=== PATIENT | female | born 1990 | race African-American/Black ===

== ENCOUNTER 2016-09-27 17:31 | Emergency (ER) | payer OTHER ==
[~2016-09-27] VITALS: Ht 154.9 cm; Wt 68.0 kg
[~2016-09-27 17:31] MED LIST: CITRATE OF MAG296 ML PO; COLACE100 MG PO; IBUPROFEN 600600 M1 PO; MACROBID 100 M100 M1 PO; NAPROSYN500 MG PO; PEPCID20 MG PO; PROAIR HFA8.5 GM; ULTRAM 50MG TAB50 MG PO; VENTOLIN HFA 1818 GM INH; ZPAK PO
[2016-09-27] MEDS ORDERED: MACROBID 100 M100 M1 PO (17:41)
[2016-09-27 17:58] VITALS: BP 120/76
[2016-09-27] MEDS ORDERED: CLONAZEPAM 0.50.5 M1 PO (17:59)
[2016-09-27 18:13] LABS: URINE BILIRUBIN NEGATIVE (Negative); URINE BLOOD 2+ (Negative); URINE COLOR YELLOW; URINE GLUCOSE-RANDOM* NEGATIVE (Negative); URINE KETONES NEGATIVE (Negative); URINE NITRITE NEGATIVE (Negative); URINE PROTEIN (DIPSTICK) TRACE (Negative); URINE SPECIFIC GRAVITY >= 1.030 (1.003-1.035); URINE UROBILINOGEN 0.2 E.U./dl (0.2-1.0)
[2016-09-27 18:21] LABS: SQUAMOUS 0-3 Few /LPF (0-3)
[2016-09-27 18:22] LABS: BACTERIA 1-9 Few /HPF (None Seen); CASTS None Seen /LPF (None Seen); CRYSTALS None Seen /LPF (None Seen); URINE RBC 3-10 Few /HPF (0-2); URINE WBC 0-5 Rare /HPF (0-5)
== END 2016-09-27 18:28 | disposition home or self-care (01) ==
LOC: ER 17:31
PROVIDERS: Emergency Medicine
DX: N76.0 Acute vaginitis (principal); J45.909 Unspecified asthma, uncomplicated; Z88.6 Allergy status to analgesic agent

== ENCOUNTER 2016-12-02 15:20 | Emergency (ER) | payer BC, OTHER ==
[~2016-12-02] VITALS: Ht 154.9 cm; Wt 68.0 kg
--- NOTE | ~2016-12-02 | EKG ---
[address] [address] ELECTROCARDIOGRAM REPORT Name: MOHSEN PABON Room #: [facility]#: [id number] Admission: 12/02/16 Attend Phys: Discharge: 12/02/16 Date of : [birth year] Report #: [id number] THIS REPORT FOR: //name// [facility] ED Test Date: 2016-12-02 Test Time: 15:57:36 Pat Name: MOHSEN PABON Department: Room: Gender: F Receiving Weigher: [id number] : 1990 Requested By: Brannon Valenzuela Order Number: [id number] MD: Andres Hogue Measurements Intervals [place] Rate: 116 P: 55 [place]: 164 QRS: 45 QRSD: 106 T: 4 QT: 309 QTc: 430 Interpretive Statements Sinus tachycardia Otherwise no significant abnormality Compared to ECG 10/04/2014 19:46:49 Sinus rhythm no longer present Electronically Signed On 12-03-2016 8:58:38 CDT by Andres Hogue [email or web address] <ELECTRONICALLY SIGNED> By: Andres Hogue MD, [facility] 12/03/16 0858 1557 155 Andres Hogue MD, FAC /EPI
--- NOTE | ~2016-12-02 | EKG ---
[address] [address] ELECTROCARDIOGRAM REPORT Name: MOHSEN PABON Room #: DEP [facility]#: [id number] Admission: 12/02/16 Attend Phys: Discharge: 12/02/16 Date of : [birth year] Report #: [id number] THIS REPORT FOR: //name// [facility] ED Test Date: 2016-12-02 Test Time: 15:34:18 Pat Name: MOHSEN PABON Department: Room: Gender: F Town Administrator: [email or web address] : 1990 Requested By: Branonn Valenzuela Order Number: [id number] MD: Andres Hogue Measurements Intervals [place] Rate: 82 P: 9 [place]: 160 QRS: 44 QRSD: 93 T: 14 QT: 355 QTc: 415 Interpretive Statements Sinus rhythm No significant abnormality Compared to ECG 10/04/2014 19:46:49 No significant changes Electronically Signed On 12-03-2016 8:58:25 CDT by Andres Hogue [email or web address] <ELECTRONICALLY SIGNED> By: Andres Hogue MD, [facility] 12/03/16 0858 D: 07/1533 153 Andres Hogue MD, FACC /EPI
[~2016-12-02 15:20] MED LIST changes: +CLONAZEPAM 0.50.5 M1 PO
[2016-12-02] MEDS ORDERED: ALBUTEROL2.5 MG/0.1 INH (15:21)
[2016-12-02 15:54] LABS: ABSOLUTE NEUTROPHILS 3.2 thou/uL (1.4-8.2); BASOPHILS 0.4 % (0.0-2.0); EOSINOPHILS 0.5 % (0.0-3.0); HEMATOCRIT 34.3 % (37.0-47.0); HEMOGLOBIN 11.4 gm/dL (12.0-15.0); LYMPHOCYTES 26.6 % (24.0-44.0); MCH 33.4 pg (26.0-34.0); MCHC 33.2 g/dL (28.0-37.0); MCV 100.5 fL (80.0-100.0); MONOCYTES 4.4 % (1.0-8.0); PLATELET COUNT 185 thou/uL (150-400); POLYS 68.1 % (36.0-66.0); RBC 3.42 mil/uL (4.20-5.00); RDW 13.8 % (10.5-14.5); WBC 4.7 thou/uL (4.0-11.0)
[2016-12-02 15:55] LABS: MANUAL DIFF NO
[2016-12-02 16:02] LABS: URINE BILIRUBIN 1+ (Negative); URINE BLOOD NEGATIVE (Negative); URINE COLOR YELLOW; URINE GLUCOSE-RANDOM* NEGATIVE (Negative); URINE KETONES 1+ (Negative); URINE NITRITE NEGATIVE (Negative); URINE PROTEIN (DIPSTICK) TRACE (Negative); URINE SPECIFIC GRAVITY >= 1.030 (1.003-1.035); URINE UROBILINOGEN 0.2 E.U./dl (0.2-1.0)
[2016-12-02 16:04] LABS: ICTOTEST (BILI CONFIRMATORY) Positive (Negative)
[2016-12-02 16:06] LABS: CALCIUM 8.5 mg/dL (8.5-10.1); CREATININE 0.8 mg/dL (0.6-1.0); POTASSIUM 3.3 mmol/L (3.5-5.1)
[2016-12-02 16:13] LABS: CASTS None Seen /LPF (None Seen); SQUAMOUS >10 Many /LPF (0-3)
[2016-12-02 16:14] LABS: BACTERIA 1-9 Few /HPF (None Seen); CRYSTALS None Seen /LPF (None Seen); URINE RBC 0-2 Rare /HPF (0-2); URINE WBC 0-5 Rare /HPF (0-5)
[2016-12-02 16:15] LABS: AMP/METHAMP Negative (Negative); BARBITURATES Negative (Negative); BENZODIAZEPINES Negative (Negative); COCAINE Negative (Negative); METHADONE Negative (Negative); OPIATES Negative (Negative); PCP Negative (Negative); THC Negative (Negative)
[2016-12-02 19:22] VITALS: BP 104/65
[2016-12-02] MEDS ORDERED: CLARITIN10 MG PO (19:30)
== END 2016-12-02 18:54 | disposition home or self-care (01) ==
LOC: ER 15:20
PROVIDERS: Nurse Practitioner
DX: E86.0 Dehydration (principal); J45.909 Unspecified asthma, uncomplicated; F10.99 Alcohol use, unspecified with unspecified alcohol-induced disorder; E66.9 Obesity, unspecified; Z88.6 Allergy status to analgesic agent

== ENCOUNTER 2016-12-17 08:18 | Emergency (ER) | payer BC, OTHER ==
[~2016-12-17] VITALS: Ht 154.9 cm; Wt 68.0 kg
--- NOTE | ~2016-12-17 | EKG ---
[address] [address] ELECTROCARDIOGRAM REPORT Name: MOHSEN PABON [id number] Admission: 12/17/16 Attend Phys: Discharge: 12/17/16 Date of : [birth year] Report #: [id number] THIS REPORT FOR: //name// [facility] ED Test Date: 2016-12-17 Test Time: 08:34:21 Pat Name: MOHSEN PABON Department: Room: Gender: F Career Technology Teacher: ANDREY : 1990 Requested By: Virgil Foster Order Number: [id number] MD: Arian Breaux Measurements Intervals [place] Rate: 80 P: 19 [place]: 163 QRS: 46 QRSD: 94 T: 12 QT: 360 QTc: 416 Interpretive Statements Sinus rhythm Baseline wander in lead(s) II,III,aVF Compared to ECG 12/02/2016 15:57:36 Sinus tachycardia no longer present Electronically Signed On 12-18-2016 14:06:12 CDT by Arian Breaux [email or web address] <ELECTRONICALLY SIGNED> By: Arian Breaux MD 12/18/16 1406 D: 08833 3 Arian Breaux MD /SUSAN
[~2016-12-17 08:18] MED LIST changes: +ALBUTEROL2.5 MG/0.1 INH; +CLARITIN10 MG PO
[2016-12-17 09:10] LABS: ABSOLUTE NEUTROPHILS 2.6 thou/uL (1.4-8.2); BASOPHILS 0.5 % (0.0-2.0); EOSINOPHILS 0.3 % (0.0-3.0); HEMATOCRIT 37.3 % (37.0-47.0); HEMOGLOBIN 12.5 gm/dL (12.0-15.0); LYMPHOCYTES 23.7 % (24.0-44.0); MCH 33.7 pg (26.0-34.0); MCHC 33.6 g/dL (28.0-37.0); MCV 100.3 fL (80.0-100.0); MONOCYTES 4.5 % (1.0-8.0); PLATELET COUNT 225 thou/uL (150-400); RBC 3.72 mil/uL (4.20-5.00); RDW 13.7 % (10.5-14.5); WBC 3.6 thou/uL (4.0-11.0)
[2016-12-17 09:14] LABS: MANUAL DIFF NO
[2016-12-17 09:20] LABS: ANION GAP 7 mmol/L (7-16); BUN 9 mg/dL (7-18); CALCIUM 9.4 mg/dL (8.5-10.1); CHLORIDE 104 mmol/L (98-107); CO2 27 mmol/L (21-32); CREATININE 0.9 mg/dL (0.6-1.0); GLUCOSE 89 mg/dL (74-106); POTASSIUM 3.4 mmol/L (3.5-5.1); SODIUM 138 mmol/L (136-145)
[2016-12-17 09:27] LABS: ALBUMIN 3.5 g/dL (3.4-5.0); ALKALINE PHOSPHATASE 51 U/L (46-116); MAGNESIUM 1.4 mg/dL (1.8-2.4); SGOT 13 U/L (15-37); SGPT 11 U/L (30-65); TOTAL BILIRUBIN 0.3 mg/dL (<0.1-1.0); TOTAL PROTEIN 7.6 g/dL (6.4-8.2); TROPONIN-I < 0.04 ng/mL (<0.04-0.07)
[2016-12-17 11:37] VITALS: BP 126/74
== END 2016-12-17 11:38 | disposition home or self-care (01) ==
LOC: ER 08:18
PROVIDERS: Emergency Medicine
DX: R42 Dizziness and giddiness (principal); J45.909 Unspecified asthma, uncomplicated; F10.99 Alcohol use, unspecified with unspecified alcohol-induced disorder; Z88.6 Allergy status to analgesic agent

== ENCOUNTER 2017-01-05 18:32 | Emergency (ER) | payer BC, OTHER ==
[~2017-01-05] VITALS: Ht 154.9 cm; Wt 62.6 kg
--- NOTE | ~2017-01-05 | EKG ---
[address] [address] ELECTROCARDIOGRAM REPORT Name: MOHSEN PABON [facility] [id number] Admission: 01/05/17 Attend Phys: Discharge: 01/05/17 Date of : [birth year] Report #: [id number] THIS REPORT FOR: //name// [facility] ED Test Date: 2017-01-05 Test Time: 18:58:31 Pat Name: MOHSEN PABON Department: Room: Gender: F Logistic Manager: HITESH : 1990 Requested By: Gerardo Serrano Order Number: [id number] MD: Andres Hogue Measurements Intervals [place] Rate: 109 P: 54 [place]: 184 QRS: 39 QRSD: 96 T: 3 QT: 329 QTc: 444 Interpretive Statements Sinus tachycardia Borderline T wave abnormalities Compared to ECG 12/17/2016 08:34:21 Sinus tachycardias now present Electronically Signed On 01-06-2017 7:57:10 CDT by Andres Hogue [email or web address] <ELECTRONICALLY SIGNED> By: Andres Hogue MD, [facility] 01/06/17 0757 57 57 Andres Hogue MD, FAC /EPI
[2017-01-05 19:19] LABS: ABSOLUTE NEUTROPHILS 2.2 thou/uL (1.4-8.2); BASOPHILS 0.4 % (0.0-2.0); EOSINOPHILS 0.7 % (0.0-3.0); LYMPHOCYTES 42.2 % (24.0-44.0); MCH 33.3 pg (26.0-34.0); MCHC 33.2 g/dL (28.0-37.0); MCV 100.3 fL (80.0-100.0); MONOCYTES 7.8 % (1.0-8.0); PLATELET COUNT 228 thou/uL (150-400); POLYS 48.9 % (36.0-66.0); RBC 3.59 mil/uL (4.20-5.00); RDW 13.7 % (10.5-14.5); WBC 4.5 thou/uL (4.0-11.0)
[2017-01-05 19:20] LABS: MANUAL DIFF NO
[2017-01-05 19:25] LABS: ANION GAP 9 mmol/L (7-16); BUN 5 mg/dL (7-18); CALCIUM 9.1 mg/dL (8.5-10.1); CHLORIDE 105 mmol/L (98-107); CO2 24 mmol/L (21-32); CREATININE 0.9 mg/dL (0.6-1.0); GLUCOSE 122 mg/dL (74-106); POTASSIUM 3.2 mmol/L (3.5-5.1); SODIUM 138 mmol/L (136-145)
[2017-01-05 19:33] LABS: ALBUMIN 3.6 g/dL (3.4-5.0); ALKALINE PHOSPHATASE 49 U/L (46-116); SGOT 13 U/L (15-37); SGPT 12 U/L (30-65); TOTAL BILIRUBIN 0.2 mg/dL (<0.1-1.0); TOTAL PROTEIN 7.6 g/dL (6.4-8.2); TROPONIN-I < 0.04 ng/mL (<0.04-0.07)
[2017-01-05] MEDS ORDERED: PROPRANOLOL 1010 MG PO (21:52)
[2017-01-05 22:03] VITALS: BP 116/74
== END 2017-01-05 22:15 | disposition home or self-care (01) ==
LOC: ER 18:32
PROVIDERS: Physician Assistant
DX: F41.9 Anxiety disorder, unspecified (principal); R42 Dizziness and giddiness; R00.2 Palpitations; J45.909 Unspecified asthma, uncomplicated; F10.99 Alcohol use, unspecified with unspecified alcohol-induced disorder; Z88.6 Allergy status to analgesic agent

== ENCOUNTER 2017-02-16 12:19 | Emergency (ER) | payer BC, OTHER ==
[~2017-02-16] VITALS: Ht 154.9 cm; Wt 63.5 kg
[~2017-02-16 12:19] MED LIST changes: +PROPRANOLOL 1010 MG PO
[2017-02-16 12:20] VITALS: BP 114/73
== END 2017-02-16 12:52 | disposition home or self-care (01) ==
LOC: ER 12:19
DX: J45.909 Unspecified asthma, uncomplicated (principal); Z88.6 Allergy status to analgesic agent

== ENCOUNTER 2017-11-24 13:42 | Emergency (ER) | payer BC, OTHER ==
[~2017-11-24] VITALS: Ht 154.9 cm; Wt 65.8 kg
--- NOTE | ~2017-11-24 | EKG ---
[address] [address] ELECTROCARDIOGRAM REPORT Name: MOHSEN PABON Room #: DEP [facility]#: [id number] Admission: 11/24/17 Attend Phys: Discharge: 11/24/17 Date of : [birth year] Report #: [id number] THIS REPORT FOR: //name// [facility] ED Test Date: 2017-11-24 Test Time: 13:44:28 Pat Name: MOHSEN PABON Department: Room: Gender: F Director Of Front Office: [facility] : 1990 Requested By: Matty Schumacher Order Number: [id number] MD: Andres Hogue Measurements Intervals [place] Rate: 81 P: 43 ME: 157 QRS: 60 QRSD: 92 T: 31 QT: 355 QTc: 412 Interpretive Statements Sinus rhythm No significant abnormality Compared to ECG 01/05/2017 18:58:31 Sinus tachycardia no longer present T-wave abnormality no longer present Electronically Signed On 11-25-2017 8:36:35 CDT by Andres Hogue [email or web address] <ELECTRONICALLY SIGNED> By: Andres Hogue MD, [facility] 11/25/17 0836 1344 1344 Andres Hogue MD, [facility] /EPI
[2017-11-24 14:41] LABS: URINE BILIRUBIN NEGATIVE (Negative); URINE BLOOD NEGATIVE (Negative); URINE CLARITY CLEAR; URINE COLOR YELLOW; URINE GLUCOSE-RANDOM* NEGATIVE (Negative); URINE KETONES NEGATIVE (Negative); URINE LEUKOCYTES NEGATIVE (Negative); URINE NITRITE NEGATIVE (Negative); URINE PROTEIN (DIPSTICK) NEGATIVE (Negative); URINE SPECIFIC GRAVITY <= 1.005 (1.005-1.035); URINE UROBILINOGEN 0.2 E.U./dl (0.2-1.0)
[2017-11-24 14:43] LABS: ABSOLUTE NEUTROPHILS 3.5 thou/uL (1.4-8.2); BASOPHILS 0.5 % (0.0-2.0); EOSINOPHILS 0.3 % (0.0-3.0); HEMATOCRIT 38.1 % (37.0-47.0); HEMOGLOBIN 12.9 gm/dL (12.0-15.0); LYMPHOCYTES 27.7 % (24.0-44.0); MCHC 33.9 g/dL (28.0-37.0); MCV 100.3 fL (80.0-100.0); MONOCYTES 2.7 % (1.0-8.0); PLATELET COUNT 223 thou/uL (150-400); POLYS 68.8 % (36.0-66.0); RDW 14.2 % (10.5-14.5); WBC 5.1 thou/uL (4.0-11.0)
[2017-11-24 14:54] LABS: ANION GAP 5 mmol/L (7-16); BUN 15 mg/dL (7-18); CALCIUM 9.1 mg/dL (8.5-10.1); CHLORIDE 101 mmol/L (98-107); CO2 27 mmol/L (21-32); CREATININE 0.9 mg/dL (0.6-1.0); GLUCOSE 154 mg/dL (74-106); POTASSIUM 3.6 mmol/L (3.5-5.1); SODIUM 133 mmol/L (136-145)
[2017-11-24 15:02] LABS: ALBUMIN 3.5 g/dL (3.4-5.0); LIPASE 124 U/L (73-393); SGOT 15 U/L (15-37); SGPT 19 U/L (30-65); TOTAL BILIRUBIN 0.4 mg/dL (<0.1-1.0); TOTAL PROTEIN 8.1 g/dL (6.4-8.2); TROPONIN-I <0.06 ng/mL (<0.06)
[2017-11-24] MEDS ORDERED: LIDOCARE1 EACH TOP (16:34)
[2017-11-24 17:05] VITALS: BP 102/64
== END 2017-11-24 17:06 | disposition home or self-care (01) ==
LOC: ER 13:42
PROVIDERS: Emergency Medicine
DX: R07.89 Other chest pain (principal); R11.0 Nausea; J45.909 Unspecified asthma, uncomplicated; Z88.6 Allergy status to analgesic agent

== ENCOUNTER 2019-01-02 09:33 | Emergency (ER) | payer OTHER ==
[~2019-01-02] VITALS: Ht 175.3 cm; Wt 62.6 kg
--- NOTE | ~2019-01-02 | EMS ---
[facility] [address] [place] [address] EMS Patient Care Report Name: MOHSEN PABON Room #: PRE MMontez#: [id number] Admission: Attend Phys: Discharge: Date of : [birth year] Report #: [id number] THIS REPORT FOR: //name// Report Transmitted: 01/02/2019 08:51 EMS Care Summary [place], [place]/[facility] Incident [id number] @ 01/02/2019 09:10 Incident Location [address] [place] [address] Patient MOHSEN PABON Female, 28 Years 1990 Patient Address [id number] [place] [address] Patient History Asthma,Anxiety, Patient Allergies Aspirin, Patient Medications Albuterol, Chief Complaint PALPITATIONS Disposition Transported No Lights/[place] Dispatch Reason Chest Pain (Non-Traumatic) Transported To [facility] Narrative RESPONDED TO CHEST PAIN IN PT CAR. PT FOUND WALKING TOWARDS EMS WITH FF/MEDIC BECHTHOLD. SHE REPORTS PT IS HAVING PALPITATIONS WITH DIZZINESS SINCE THIS MORNING. PT WAS ABOUT TO DRIVE HERSELF TO HOSPITAL BUT DECIDED AGAINST IT. PT [facility] [address] [place] [address] EMS Patient Care Report Name: MOHSEN PABON Room #: [facility].Steph.#: [id number] Admission: Attend Phys: Discharge: Date of : [birth year] Report #: [id number] REPORTS MILD CHEST SUBSTERNAL PAIN THAT RADIATES TO STOMACH. PT ASSISTED TO AMBULANCE. VITALS, 3 LEAD AND 12 LEAD OBTAINED. PT DENIED IV. 12 LEAD REVEALED NORMAL SINUS RHYTHM WITH NO ST ELEVATION/DEPRESSION. PT TRANSPORTED NONEMERGENCY TO [facility]. PT WALKED FROM COT TO BED. REPORT GIVEN TO NURSE. Initial Vitals @09:23P: 103,R: 14,BP: 112/79,CO: 10,SpO2: 100, @09:19P: 93,ME Suspected: false @09:17P: 89,R: 14,BP: 127/80,Pain: 2/10,GCS: 15,SpO2: 98,Revised Trauma: 12, Assessments @09:16MENTAL:Time Oriented,Person Oriented,Place Oriented,Event Oriented,SKIN:HEENT:Head/Face: No Abnormalities,Neck/Airway: No Abnormalities,LUNG SOUNDS:General: Nausea,ABDOMEN:General: Nausea,PELVIS//GI:No Abnormalities,EXTREMITIES:Left Arm: No Abnormalities,Right Arm: No Abnormalities,Left Leg: No Abnormalities,Right Leg: No Abnormalities,PULSE:NEURO:@09:24MENTAL:No Abnormalities,SKIN:No Abnormalities,HEENT:Head/Face: No Abnormalities,Eyes: No Abnormalities,Neck/Airway: No Abnormalities,LUNG SOUNDS:General: No Abnormalities,Left Upper: No Abnormalities,Right Upper: No Abnormalities,Left Lower: No Abnormalities,Right Lower: No Abnormalities,ABDOMEN:General: No Abnormalities,Left Upper: No Abnormalities,Right Upper: No Abnormalities,Left Lower: No Abnormalities,Right Lower: No Abnormalities,PELVIS//GI:No Abnormalities,EXTREMITIES:Left Arm: No Abnormalities,Right Arm: No Abnormalities,Left Leg: No Abnormalities,Right Leg: No Abnormalities,PULSE:NEURO:No Abnormalities, Impression Chest Pain, Other (Non-Cardiac) Procedures @09:183-Lead ECGResponse: UnchangedSucceeded@09:16ALS AssessmentResponse: UnchangedSucceeded@09:1912-Lead ECGResponse: UnchangedSucceeded@09:20General CommentsResponse: Unchanged Timeline 09:03,Call Received 09:03,Dispatch Notified 09:10,Dispatched 09:11,En Route 09:16,On Scene 09:16,At Patient 09:16,ALS Assessment,Response: UnchangedSucceeded, 09:17,BP: 127/80 M,PULSE: 89,RR: 14 R,SPO2: 98 Ox,ETCO2: ,BG: ,PAIN: 2,GCS: 15, 09:18,3-Lead ECG,Response: UnchangedSucceeded, 09:19,12-Lead ECG,Response: UnchangedSucceeded, [address] [address] EMS Patient Care Report Name: PEPPERMOHSEN Room #: PRE M.R.#: [id number] Admission: Attend Phys: Discharge: Date of : [birth year] Report #: [id number] 09:19,BP: / M,PULSE: 93,RR: R,SPO2: Ox,ETCO2: ,BG: ,PAIN: ,GCS: , 09:20,General Comments,Response: Unchanged 09:22,Depart Scene 09:23,BP: 112/79 M,PULSE: 103,RR: 14 R,SPO2: 100 Ox,ETCO2: ,BG: ,PAIN: ,GCS: , 09:36,At Destination 09:43,Call Closed Disclaimer v1.1 Copyright 2019 [email or web address] This EMS Care Summary contains data elements from the applicable legal record (which may be displayed differently). It is designed to provide pertinent information for the following purposes: continuity of care, clinical quality, and state data reporting. The complete legal record is available to ED staff and administrators of the receiving hospital in [employer]'s Patient Tracker. All data is provided "as is."
--- NOTE | ~2019-01-02 | EKG ---
[address] [address] ELECTROCARDIOGRAM REPORT Name: MOHSEN PABON [facility] [id number] Admission: 01/02/19 Attend Phys: Discharge: 01/02/19 Date of : [birth year] Report #: [id number] THIS REPORT FOR: //name// [facility] ED Test Date: 2019-01-02 Test Time: 09:36:26 Pat Name: MOHSEN PABON Department: Room: Gender: F Pipe Organ Technician: VERONICA : 1990 Requested By: Matty Schumacher Order Number: [id number] MD: Measurements Intervals [place] Rate: 89 P: 34 [place]: 168 QRS: 35 QRSD: 91 T: 13 QT: 345 QTc: 420 Interpretive Statements Sinus rhythm No previous ECG available for comparison [email or web address] By: 5 5 Yamilet Woodard MD /EPI
[~2019-01-02 09:33] MED LIST changes: +LIDOCARE1 EACH TOP
[2019-01-02 10:07] LABS: ABSOLUTE NEUTROPHILS 1.9 thou/uL (1.4-8.2); BASOPHILS 0.8 % (0.0-2.0); HEMATOCRIT 37.1 % (37.0-47.0); HEMOGLOBIN 12.6 gm/dL (12.0-15.0); LYMPHOCYTES 37.4 % (24.0-44.0); MCH 33.8 pg (26.0-34.0); MCHC 33.8 g/dL (28.0-37.0); MONOCYTES 7.2 % (1.0-8.0); PLATELET COUNT 219 thou/uL (150-400); POLYS 53.6 % (36.0-66.0); RBC 3.71 mil/uL (4.20-5.00); RDW 13.9 % (10.5-14.5); WBC 3.5 thou/uL (4.0-11.0)
[2019-01-02 10:09] LABS: ANION GAP 7 mmol/L (7-16); BUN 12 mg/dL (7-18); CALCIUM 9.1 mg/dL (8.5-10.1); CHLORIDE 103 mmol/L (98-107); CO2 27 mmol/L (21-32); CREATININE 0.8 mg/dL (0.6-1.0); GLUCOSE 90 mg/dL (74-106); POTASSIUM 3.7 mmol/L (3.5-5.1); SODIUM 137 mmol/L (136-145)
[2019-01-02 10:18] LABS: TROPONIN-I <0.06 ng/mL (<0.06)
[2019-01-02] MEDS ORDERED: ANTIVERT25 MG PO (11:23)
[2019-01-02 11:56] VITALS: BP 110/72
== END 2019-01-02 11:58 | disposition home or self-care (01) ==
LOC: ER 09:33
PROVIDERS: Emergency Medicine
DX: I25.10 Atherosclerotic heart disease of native coronary artery without angina pectoris (principal); R07.9 Chest pain, unspecified; R42 Dizziness and giddiness; J45.909 Unspecified asthma, uncomplicated; Z88.6 Allergy status to analgesic agent

== ENCOUNTER 2019-01-20 17:49 | Emergency (ER) | payer OTHER ==
[~2019-01-20] VITALS: Ht 154.9 cm; Wt 63.0 kg
[~2019-01-20 17:49] MED LIST changes: +ANTIVERT25 MG PO
[2019-01-20 18:07] LABS: ABSOLUTE NEUTROPHILS 3.1 thou/uL (1.4-8.2); BASOPHILS 0.4 % (0.0-2.0); EOSINOPHILS 2.1 % (0.0-3.0); HEMATOCRIT 37.4 % (37.0-47.0); HEMOGLOBIN 12.3 gm/dL (12.0-15.0); LYMPHOCYTES 38.4 % (24.0-44.0); MCH 33.5 pg (26.0-34.0); MCV 101.4 fL (80.0-100.0); MONOCYTES 5.6 % (1.0-8.0); PLATELET COUNT 228 thou/uL (150-400); POLYS 53.5 % (36.0-66.0); RBC 3.68 mil/uL (4.20-5.00); RDW 13.9 % (10.5-14.5); WBC 5.7 thou/uL (4.0-11.0)
[2019-01-20 18:13] LABS: ANION GAP 9 mmol/L (7-16); BUN 12 mg/dL (7-18); CALCIUM 9.3 mg/dL (8.5-10.1); CHLORIDE 103 mmol/L (98-107); CO2 26 mmol/L (21-32); CREATININE 0.8 mg/dL (0.6-1.0); GLUCOSE 105 mg/dL (74-106); POTASSIUM 3.3 mmol/L (3.5-5.1); SODIUM 138 mmol/L (136-145)
[2019-01-20 18:23] LABS: ALBUMIN 3.4 g/dL (3.4-5.0); SGOT 12 U/L (15-37); SGPT 9 U/L (30-65); TOTAL BILIRUBIN 0.1 mg/dL (<0.1-1.0); TOTAL PROTEIN 7.6 g/dL (6.4-8.2); TROPONIN-I <0.06 ng/mL (<0.06)
[2019-01-20 19:30] VITALS: BP 109/77
--- NOTE | 2019-01-21 10:55 | EKG ---
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: WG : 1990 Requested By: Anibal Mariano Order Number: [id number] MD: Arian Breaux Measurements Intervals [place] Rate: 86 P: 66 [place]: 160 QRS: 44 QRSD: 91 T: 2 QT: 343 QTc: 411 Interpretive Statements Sinus rhythm Compared to ECG 01/02/2019 09:36:26 No significant changes Electronically Signed On 01-21-2019 10:55:00 CDT by Arian Breaux [email or web address] ��������������������������������������������� <ELECTRONICALLY SIGNED> ���������������������������������������� By: Arian Breaux MD ��������������������������������������������� 01/21/19 1055 1748 1748 Arian Breaux MD /SUSAN
== END 2019-01-20 19:30 | disposition home or self-care (01) ==
LOC: ER 17:49
PROVIDERS: Emergency Medicine
DX: R07.9 Chest pain, unspecified (principal); J45.909 Unspecified asthma, uncomplicated; Z88.6 Allergy status to analgesic agent

== ENCOUNTER 2019-02-16 19:44 | Emergency (ER) | payer OTHER ==
[~2019-02-16] VITALS: Ht 154.9 cm; Wt 64.9 kg
[2019-02-16] MEDS ORDERED: VENTOLIN HFA INH8 GM INH (19:51)
[2019-02-16 20:48] LABS: HEMATOCRIT 36.1 % (37.0-47.0); MCH 33.5 pg (26.0-34.0); MCHC 33.2 g/dL (28.0-37.0); MCV 100.9 fL (80.0-100.0); RBC 3.58 mil/uL (4.20-5.00); WBC 5.2 thou/uL (4.0-11.0)
[2019-02-16 20:56] LABS: ANION GAP 7 mmol/L (7-16); BUN 8 mg/dL (7-18); CALCIUM 9.7 mg/dL (8.5-10.1); CHLORIDE 103 mmol/L (98-107); CO2 31 mmol/L (21-32); CREATININE 0.8 mg/dL (0.6-1.0); GLUCOSE 109 mg/dL (74-106); POTASSIUM 3.1 mmol/L (3.5-5.1); SODIUM 141 mmol/L (136-145)
[2019-02-16 21:04] LABS: TROPONIN-I <0.06 ng/mL (<0.06)
[2019-02-16 22:05] LABS: AMP/METHAMP Negative (Negative); BARBITURATES Negative (Negative); BENZODIAZEPINES Negative (Negative); COCAINE Negative (Negative); METHADONE Negative (Negative); OPIATES Negative (Negative); PCP Negative (Negative)
[2019-02-16] MEDS ORDERED: VENTOLIN HFA 1818 GM INH ×2 (22:33→22:38)
[2019-02-16] MEDS ORDERED: CARDIZEM CD120 MG PO ×2 (22:33→22:38)
[2019-02-16 23:52] VITALS: BP 109/73
--- NOTE | 2019-02-18 13:22 | EKG ---
[address] [address] ELECTROCARDIOGRAM REPORT Name: MOHSEN PABON [id number] Admission: 02/16/19 Attend Phys: Discharge: 02/16/19 Date of : [birth year] Report #: [id number] THIS REPORT FOR: //name// [facility] ED Test Date: 2019-02-16 Test Time: 20:35:12 Pat Name: MOHSEN PABON Department: Room: Gender: F Drug And Alcohol Counselor: SINDY : 1990 Requested By: Anibal Mariano Order Number: [id number] MD: Andres Hogue Measurements Intervals [place] Rate: 90 P: 58 NC: 158 QRS: 28 QRSD: 100 T: 7 QT: 354 QTc: 433 Interpretive Statements Sinus rhythm Normal tracing Compared to ECG 01/20/2019 17:48:23 No significant changes Electronically Signed On 02-18-2019 13:22:52 CDT by Andres Hogue [email or web address] <ELECTRONICALLY SIGNED> By: Andres Hogue MD, [facility] 02/18/19 1322 34 Andres Hogue MD, FACC /EPI
== END 2019-02-16 23:50 | disposition home or self-care (01) ==
LOC: ER 19:44
PROVIDERS: Emergency Medicine
DX: J45.909 Unspecified asthma, uncomplicated (principal); I47.1 Supraventricular tachycardia; R07.9 Chest pain, unspecified; R20.2 Paresthesia of skin; Z88.6 Allergy status to analgesic agent

== ENCOUNTER 2019-06-21 19:40 | Emergency (ER) | payer OTHER ==
[~2019-06-21] VITALS: Ht 154.9 cm; Wt 63.5 kg
--- NOTE | ~2019-06-21 | EKG ---
[facility] [place] [address] ELECTROCARDIOGRAM REPORT Name: MOHSEN PABON Room #: PRE [facility].#: [id number] Admission: Attend Phys: Discharge: Date of : [birth year] Report #: [id number] THIS REPORT FOR: cc: NISAS Granado family physician/PCP NISSA Vannesa family physician/PCP Yamilet Woodard MD ~ THIS REPORT FOR: //name// [facility] ED Test Date: 2019-06-21 Test Time: 19:48:16 Pat Name: MOHSEN PABON Department: Room: Gender: F Adjunct Physics Instructor: VERONICA : 1990 Requested By: Luis Barragan Order Number: [id number] MD: Measurements Intervals [place] Rate: 100 P: 49 [place]: 144 QRS: 64 QRSD: 89 T: 2 QT: 327 QTc: 422 Interpretive Statements Sinus tachycardia Borderline T abnormalities, inferior leads Baseline wander in lead(s) V1,V2,V6 Compared to ECG 02/16/2019 20:35:12 T-wave abnormality now present Sinus rhythm no longer present [email or web address] By: 194 47 Epiphany Epiphany, /EPI
[~2019-06-21 19:40] MED LIST changes: +CARDIZEM CD120 MG PO; +VENTOLIN HFA INH8 GM INH
[2019-06-21 23:02] VITALS: BP 107/77
== END 2019-06-21 23:04 | disposition home or self-care (01) ==
LOC: ER 19:40
DX: J10.1 Influenza due to other identified influenza virus with other respiratory manifestations (principal); J45.909 Unspecified asthma, uncomplicated; Z88.6 Allergy status to analgesic agent

== ENCOUNTER 2019-07-03 07:56 | Emergency (ER) | payer OTHER ==
[~2019-07-03] VITALS: Ht 154.9 cm; Wt 63.5 kg
[2019-07-03 08:43] LABS: ABSOLUTE NEUTROPHILS 2.6 thou/uL (1.4-8.2); BASOPHILS 0.9 % (0.0-2.0); EOSINOPHILS 0.7 % (0.0-3.0); HEMATOCRIT 38.6 % (37.0-47.0); HEMOGLOBIN 12.6 gm/dL (12.0-15.0); LYMPHOCYTES 37.1 % (24.0-44.0); MCH 33.2 pg (26.0-34.0); MCHC 32.7 g/dL (28.0-37.0); MCV 101.6 fL (80.0-100.0); MONOCYTES 6.5 % (1.0-8.0); PLATELET COUNT 331 thou/uL (150-400); POLYS 54.8 % (36.0-66.0); RDW 14.3 % (10.5-14.5); WBC 4.7 thou/uL (4.0-11.0)
[2019-07-03 08:50] LABS: CALCIUM 9.3 mg/dL (8.5-10.1); CREATININE 0.9 mg/dL (0.6-1.0); POTASSIUM 3.4 mmol/L (3.5-5.1)
[2019-07-03 09:37] VITALS: BP 104/69
--- NOTE | 2019-07-03 16:55 | EKG ---
[facility] [place] [address] ELECTROCARDIOGRAM REPORT Name: PEPPERMOHSEN CASAS Room #: [facility]#: [id number] Admission: 07/03/19 Attend Phys: Discharge: 07/03/19 Date of : [birth year] Report #: [id number] THIS REPORT FOR: cc: NO FAMILY PHYSICIAN or PCP FAM - No family physician/PCP Yifan Workman MD ~ THIS REPORT FOR: //name// [facility] ED Test Date: 2019-07-03 Test Time: 08:19:18 Pat Name: MOHSEN PABON Department: Room: Gender: Director Of Emergency Nursing: GABY : 1990 Requested By: Luis Barragan Order Number: [id number] MD: Yifan Workman Measurements Intervals [place] Rate: 82 P: 37 [place]: 164 QRS: 26 QRSD: 91 T: 13 QT: 346 QTc: 404 Interpretive Statements Sinus rhythm Compared to ECG 06/21/2019 19:48:16 Sinus tachycardia no longer present T-wave abnormality no longer present Electronically Signed On 07-03-2019 16:54:31 BAGGING MACHINE OPERATOR by Yifan Workman [email or web address] <ELECTRONICALLY SIGNED> By: Yifan Workman MD 07/03/19 1654 8 8 Yifan Workman MD /EPI
== END 2019-07-03 09:38 | disposition home or self-care (01) ==
LOC: ER 07:56
PROVIDERS: Emergency Medicine
DX: R07.9 Chest pain, unspecified (principal); R06.02 Shortness of breath; J45.909 Unspecified asthma, uncomplicated; Z88.6 Allergy status to analgesic agent

== ENCOUNTER 2019-10-29 21:17 | Emergency (ER) | payer OTHER ==
[~2019-10-29] VITALS: Ht 154.9 cm; Wt 59.0 kg
[2019-10-29 21:59] LABS: ABSOLUTE NEUTROPHILS 2.7 thou/uL (1.4-8.2); BASOPHILS 0.5 % (0.0-2.0); EOSINOPHILS 0.5 % (0.0-3.0); HEMATOCRIT 36.3 % (37.0-47.0); HEMOGLOBIN 12.2 gm/dL (12.0-15.0); MCH 33.8 pg (26.0-34.0); MCHC 33.5 g/dL (28.0-37.0); MCV 100.9 fL (80.0-100.0); MONOCYTES 4.6 % (1.0-8.0); PLATELET COUNT 236 thou/uL (150-400); POLYS 48.4 % (36.0-66.0); RDW 13.8 % (10.5-14.5); WBC 5.6 thou/uL (4.0-11.0)
[2019-10-29 22:13] LABS: ALBUMIN 3.6 g/dL (3.4-5.0); ANION GAP 5 mmol/L (7-16); BUN 9 mg/dL (7-18); CALCIUM 9.5 mg/dL (8.5-10.1); CHLORIDE 102 mmol/L (98-107); CO2 29 mmol/L (21-32); CREATININE 0.9 mg/dL (0.6-1.0); GLUCOSE 111 mg/dL (74-106); LIPASE 163 U/L (73-393); SGOT 16 U/L (15-37); SGPT 13 U/L (30-65); SODIUM 136 mmol/L (136-145); TOTAL BILIRUBIN 0.2 mg/dL (0.2-1.0); TOTAL PROTEIN 7.5 g/dL (6.4-8.2); TROPONIN-I <0.06 ng/mL (<0.06)
[2019-10-29 22:14] LABS: POTASSIUM 2.8 mmol/L (3.5-5.1)
[2019-10-30 00:53] VITALS: BP 121/76
--- NOTE | 2019-10-30 16:04 | EKG ---
[facility] [place] [address] ELECTROCARDIOGRAM REPORT Name: PEPPERMOHSEN CASAS Room #: [facility]#: [id number] Admission: 10/29/19 Attend Phys: Discharge: 10/30/19 Date of : [birth year] Report #: [id number] THIS REPORT FOR: cc: NISSA - Vannesa family physician/PCP NISSA - No family physician/PCP Yifan Workman MD ~ THIS REPORT FOR: //name// [facility] ED Test Date: 2019-10-29 Test Time: 21:30:04 Pat Name: MOHSEN PABON Department: Room: Gender: Ore Crushing Dust Collector: : 1990 Requested By: Lincoln Landers Order Number: [id number] MD: Yifan Workman Measurements Intervals [place] Rate: 108 P: 67 [place]: 193 QRS: 48 QRSD: 94 T: -29 QT: 333 QTc: 447 Interpretive Statements Sinus tachycardia Borderline T abnormalities, diffuse leads Compared to ECG 07/03/2019 08:19:18 T-wave abnormality now present Sinus rhythm no longer present Electronically Signed On 10-30-2019 16:03:09 CDT by Yifan Workman [email or web address] <ELECTRONICALLY SIGNED> By: Yifan Workman MD 10/30/19 1603 29 29 Yifan Workman MD /EPI
== END 2019-10-30 01:06 | disposition home or self-care (01) ==
LOC: ER 21:17
PROVIDERS: Emergency Medicine
DX: E87.6 Hypokalemia (principal); R07.89 Other chest pain; R42 Dizziness and giddiness; R11.0 Nausea; R00.2 Palpitations; J45.909 Unspecified asthma, uncomplicated; Z79.899 Other long term (current) drug therapy; Z88.6 Allergy status to analgesic agent

== ENCOUNTER 2019-11-10 13:28 | Emergency (ER) | payer OTHER ==
[~2019-11-10] VITALS: Ht 154.9 cm; Wt 63.5 kg
--- NOTE | ~2019-11-10 | EMS ---
[address] [address] EMS Patient Care Report Name: MOHSEN PABON Room #: DEP YUNIOR Arredondo#: [id number] Admission: 11/10/19 Attend Phys: Discharge: 11/10/19 Date of : [birth year] Report #: [id number] THIS REPORT FOR: //name// Report Transmitted: 11/13/2019 18:33 EMS Care Summary [place], [place]/[facility] Incident [id number] @ 11/10/2019 12:44 Incident Location [address] [place], [place] [id number] Patient MOHSEN PABON Female, 29 Years 1990 Patient Address [id number] [place] [address] Patient History Asthma, Patient Allergies Aspirin, Patient Medications None Reported, Vitamin D, Chief Complaint CHEST PAIN Disposition Transported No Lights/[place] Dispatch Reason Chest Pain (Non-Traumatic) Transported To [facility] Narrative PT FOUND ON THE GROUND STAIRS INSIDE HER APARTMENT BUILDING WITH 8Y/O [address] [address] EMS Patient Care Report Name: MOHSEN PABON Room #: [facility]#: [id number] Admission: 11/10/19 Attend Phys: Discharge: 11/10/19 Date of : [birth year] Report #: [id number] DAUGHTER. PT IS IN NO APPARENT DISTRESS, AAOX4, AND GCS 15, READY TO BE TRANSPORTED TO HOSPITAL. PT WALKS AND LAYS ONTO STRETCHER WITH NO DIFFICULTY AND IS LOADED ONTO AMBULANCE WITH NO INCIDENT. PT DAUGHTER BOARDS AMBULANCE WITHOUT INCIDENT AND IS BUCKLED IN REAR PASSENGER SIDE SEAT SUCCESSFULLY. 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 PT INITIALLY STATES SHE IS NAUSEOUS, AND HAS PAIN IN THE BACK OF HER HEAD. EXCLUDING SVT ON THE MONITOR, PTS VITALS ARE WELL WITHIN NORMAL LIMITS, NO GUARDING OR GRIMMACE, LUNG SOUNDS CLEAR, WITH NORMAL RATE, DEPTH AND EFFORT OF BREATHING. IV IS STARTED BEFORE TRANSPORT AND AMIODARONE IS GIVEN IS GIVEN EN ROUTE TO HOSPITAL 3 DROPS/2 SECONDS. PTS HEART RATE BEFORE AMIODARONE IS 160. PT IS UNLOADED AND TAKEN INTO ED WITH MASK WITH NO INCIDENT. PT IS REASSESSED IN HOSPITAL WHILE WAITING FOR ROOM, PT HEART RATE IS NOW 115. PT STATES SHE IS FEELING BOUNTY HUNTER HER ABDOMEN AT THIS TIME. DRIP RATE REDUCED TO 1 DROP/SECOND. PT IS GIVEN ROOM AND MOVES SELF TO BED WITH NO INCIDENT. NURSE TAKES VITAL SIGNS FROM MONITOR. HANDOVER AND [address] IS GIVEN TO DR ON STAFF. PT CARE IS SUCCESSFULY TRANSFERRED TO [facility] NURSING STAFF. Initial Vitals @13:11P: 163,R: 18,BP: 118/85,Pain: 4/10,GCS: 15,SpO2: 100,Revised Trauma: 12,[place] Suspected: false @13:04P: 150,R: 18,BP: 135/96,Pain: 4/10,GCS: 15,SpO2: 100,Revised Trauma: 12,[place] Suspected: false @12:55P: 133,R: 18,BP: 115/77,Pain: 4/10,GCS: 15,Glucose: 123,CO: 3,SpO2: 100,Revised Trauma: 12, Assessments @12:53MENTAL:Person Oriented,Time Oriented,Place Oriented,Event Oriented,SKIN:HEENT:Head/Face: No Abnormalities,Neck/Airway: No Abnormalities,LUNG SOUNDS:General: No Abnormalities,Left Upper: No Abnormalities,Right Upper: No Abnormalities,Left Lower: No Abnormalities,Right Lower: No Abnormalities,ABDOMEN:General: No Abnormalities,Left Upper: No Abnormalities,Right Upper: No Abnormalities,Left Lower: No Abnormalities,Right Lower: No Abnormalities,PELVIS//GI:EXTREMITIES:PULSE:NEURO:@13:10MENTAL:Event Oriented,Place Oriented,Person Oriented,Time Oriented,SKIN:HEENT:LUNG SOUNDS:Left Upper: Other,Right Upper: Other,Left Lower: No Abnormalities,Right Lower: No Abnormalities,ABDOMEN:Left Upper: Other,Right Upper: Other,Left Lower: No Abnormalities,Right Lower: No Abnormalities,PELVIS//GI:EXTREMITIES:PULSE:NEURO: Impression Chest Pain / Discomfort Procedures @12:553-Lead ECGResponse: UnchangedSucceeded@13:15Amiodarone - 150 Milligrams (mg) - Intravenous (IV)Response: Improved@12:53ALS AssessmentResponse: [address] [address] EMS Patient Care Report Name: MOHSEN PABON Room #: NATALIE Arredondo#: [id number] Admission: 11/10/19 Attend Phys: Discharge: 11/10/19 Date of : [birth year] Report #: [id number] UnchangedSucceeded@12:54StretcherResponse: Unchanged@12:5712-Lead ECGResponse: UnchangedSucceeded Timeline 12:43,Call Received 12:43,Dispatch Notified 12:44,Dispatched 12:45,En Route 12:52,On Scene 12:53,At Patient 12:53,ALS Assessment,Response: UnchangedSucceeded, 12:54,Stretcher,Response: Unchanged 12:55,3-Lead ECG,Response: UnchangedSucceeded, 12:55,BP: 115/77 M,PULSE: 133,RR: 18 R,SPO2: 100 Ox,ETCO2: ,B,PAIN: 4,GCS: 15, 12:57,12-Lead ECG,Response: UnchangedSucceeded, 13:01,Depart Scene 13:04,BP: 135/96 M,PULSE: 150,RR: 18 R,SPO2: 100 Ox,ETCO2: ,BG: ,PAIN: 4,GCS: 15, 13:08,At Destination 13:11,BP: 118/85 M,PULSE: 163,RR: 18 R,SPO2: 100 Ox,ETCO2: ,BG: ,PAIN: 4,GCS: 15, 13:15,Amiodarone - 150 Milligrams (mg) - Intravenous (IV),Response: Improved 13:36,Call Closed Disclaimer v1.1 Copyright 2020 [employer] This EMS Care Summary contains data elements from the applicable legal record (which may be displayed differently). It is designed to provide pertinent information for the following purposes: continuity of care, clinical quality, and state data reporting. The complete legal record is available to ED staff and administrators of the receiving hospital in [employer] Patient Tracker. All data is provided "as is."
--- NOTE | ~2019-11-10 | EMS ---
[address] [address] EMS Patient Care Report Name: MOHSEN PABON Room #: DEP YUNIOR Arredondo#: [id number] Admission: 11/10/19 Attend Phys: Discharge: 11/10/19 Date of : [birth year] Report #: [id number] THIS REPORT FOR: //name// Report Transmitted: 11/11/2019 02:21 EMS Care Summary [place], [place]/[facility] Incident [phone] @ 11/10/2019 12:44 Incident Location [id number] [place] [id number] Patient MOHSEN PABON Female, 29 Years 1990 Patient Address [id number] [place] [id number] Patient History Asthma, Patient Allergies Aspirin, Patient Medications None Reported, Vitamin D, Chief Complaint CHEST PAIN Disposition Transported No Lights/[place] Dispatch Reason Chest Pain (Non-Traumatic) Transported To [facility] Narrative PT FOUND ON THE GROUND STAIRS INSIDE HER APARTMENT BUILDING WITH 8Y/O [address] [address] EMS Patient Care Report Name: MOHSEN PABON Room #: [facility]#: [id number] Admission: 11/10/19 Attend Phys: Discharge: 11/10/19 Date of : [birth year] Report #: [id number] DAUGHTER. PT IS IN NO APPARENT DISTRESS, AAOX4, AND GCS 15, READY TO BE TRANSPORTED TO HOSPITAL. PT WALKS AND LAYS ONTO STRETCHER WITH NO DIFFICULTY AND IS LOADED ONTO AMBULANCE WITH NO INCIDENT. PT DAUGHTER BOARDS AMBULANCE WITHOUT INCIDENT AND IS BUCKLED IN REAR PASSENGER SIDE SEAT SUCCESSFULLY. 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 PT INITIALLY STATES SHE IS NAUSEOUS, AND HAS PAIN IN THE BACK OF HER HEAD. EXCLUDING SVT ON THE MONITOR, PTS VITALS ARE WELL WITHIN NORMAL LIMITS, NO GUARDING OR GRIMMACE, LUNG SOUNDS CLEAR, WITH NORMAL RATE, DEPTH AND EFFORT OF BREATHING. IV IS STARTED BEFORE TRANSPORT AND AMIODARONE IS GIVEN IS GIVEN EN ROUTE TO HOSPITAL 3 DROPS/2 SECONDS. PTS HEART RATE BEFORE AMIODARONE IS 160. PT IS UNLOADED AND TAKEN INTO ED WITH MASK WITH NO INCIDENT. PT IS REASSESSED IN HOSPITAL WHILE WAITING FOR ROOM, PT HEART RATE IS NOW 115. 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 DRIP RATE REDUCED TO 1 DROP/SECOND. PT IS GIVEN ROOM AND MOVES SELF TO BED WITH NO INCIDENT. NURSE TAKES VITAL SIGNS FROM MONITOR. HANDOVER AND [address] IS GIVEN TO [address] ON STAFF. PT CARE IS SUCCESSFULY TRANSFERRED TO [facility]. Initial Vitals @13:11P: 163,R: 18,BP: 118/85,Pain: 4/10,GCS: 15,SpO2: 100,Revised Trauma: 12,[place] Suspected: false @13:04P: 150,R: 18,BP: 135/96,Pain: 4/10,GCS: 15,SpO2: 100,Revised Trauma: 12,[place] Suspected: false @12:55P: 133,R: 18,BP: 115/77,Pain: 4/10,GCS: 15,Glucose: 123,CO: 3,SpO2: 100,Revised Trauma: 12, Assessments @12:53MENTAL:Person Oriented,Time Oriented,Place Oriented,Event Oriented,SKIN:HEENT:Head/Face: No Abnormalities,Neck/Airway: No Abnormalities,LUNG SOUNDS:General: No Abnormalities,Left Upper: No Abnormalities,Right Upper: No Abnormalities,Left Lower: No Abnormalities,Right Lower: No Abnormalities,ABDOMEN:General: No Abnormalities,Left Upper: No Abnormalities,Right Upper: No Abnormalities,Left Lower: No Abnormalities,Right Lower: No Abnormalities,PELVIS//GI:EXTREMITIES:PULSE:NEURO:@13:10MENTAL:Event Oriented,Place Oriented,Person Oriented,Time Oriented,SKIN:HEENT:LUNG SOUNDS:Left Upper: Other,Right Upper: Other,Left Lower: No Abnormalities,Right Lower: No Abnormalities,ABDOMEN:Left Upper: Other,Right Upper: Other,Left Lower: No Abnormalities,Right Lower: No Abnormalities,PELVIS//GI:EXTREMITIES:PULSE:NEURO: Impression Chest Pain / Discomfort Procedures @12:553-Lead ECGResponse: UnchangedSucceeded@13:15Amiodarone - 150 Milligrams (mg) - Intravenous (IV)Response: Improved@12:53ALS AssessmentResponse: [address] [address] EMS Patient Care Report Name: MOHSEN PABON Room #: [facility] YUNIOR Arredondo#: [id number] Admission: 11/10/19 Attend Phys: Discharge: 11/10/19 Date of : [birth year] Report #: [id number] UnchangedSucceeded@12:54StretcherResponse: Unchanged@12:5712-Lead ECGResponse: UnchangedSucceeded Timeline 12:43,Call Received 12:43,Dispatch Notified 12:44,Dispatched 12:45,En Route 12:52,On Scene 12:53,At Patient 12:53,ALS Assessment,Response: UnchangedSucceeded, 12:54,Stretcher,Response: Unchanged 12:55,3-Lead ECG,Response: UnchangedSucceeded, 12:55,BP: 115/77 M,PULSE: 133,RR: 18 R,SPO2: 100 Ox,ETCO2: ,B,PAIN: 4,GCS: 15, 12:57,12-Lead ECG,Response: UnchangedSucceeded, 13:01,Depart Scene 13:04,BP: 135/96 M,PULSE: 150,RR: 18 R,SPO2: 100 Ox,ETCO2: ,BG: ,PAIN: 4,GCS: 15, 13:08,At Destination 13:11,BP: 118/85 M,PULSE: 163,RR: 18 R,SPO2: 100 Ox,ETCO2: ,BG: ,PAIN: 4,GCS: 15, 13:15,Amiodarone - 150 Milligrams (mg) - Intravenous (IV),Response: Improved 13:36,Call Closed Disclaimer [email or web address] Copyright 2020 [employer] This EMS Care Summary contains data elements from the applicable legal record (which may be displayed differently). It is designed to provide pertinent information for the following purposes: continuity of care, clinical quality, and state data reporting. The complete legal record is available to ED staff and administrators of the receiving hospital in [employer]'s Patient Tracker. All data is provided "as is."
[2019-11-10 13:48] LABS: ABSOLUTE NEUTROPHILS 3.1 thou/uL (1.4-8.2); BASOPHILS 0.3 % (0.0-2.0); EOSINOPHILS 0.1 % (0.0-3.0); HEMATOCRIT 36.8 % (37.0-47.0); HEMOGLOBIN 12.5 gm/dL (12.0-15.0); LYMPHOCYTES 28.9 % (24.0-44.0); MCH 34.3 pg (26.0-34.0); MCV 100.9 fL (80.0-100.0); MONOCYTES 4.6 % (1.0-8.0); PLATELET COUNT 214 thou/uL (150-400); POLYS 66.1 % (36.0-66.0); RBC 3.65 mil/uL (4.20-5.00); RDW 14.3 % (10.5-14.5); WBC 4.7 thou/uL (4.0-11.0)
[2019-11-10 13:59] LABS: ANION GAP 10 mmol/L (7-16); BUN 13 mg/dL (7-18); CALCIUM 8.9 mg/dL (8.5-10.1); CHLORIDE 101 mmol/L (98-107); CO2 22 mmol/L (21-32); CREATININE 0.9 mg/dL (0.6-1.0); GLUCOSE 122 mg/dL (74-106); POTASSIUM 3.5 mmol/L (3.5-5.1); SODIUM 133 mmol/L (136-145)
[2019-11-10 14:00] LABS: URINE BILIRUBIN NEGATIVE (Negative); URINE BLOOD NEGATIVE (Negative); URINE CLARITY CLEAR; URINE COLOR YELLOW; URINE GLUCOSE-RANDOM* NEGATIVE (Negative); URINE KETONES NEGATIVE (Negative); URINE LEUKOCYTES-REFLEX TRACE (Negative); URINE NITRITE-REFLEX NEGATIVE (Negative); URINE PROTEIN (DIPSTICK) TRACE (Negative); URINE SPECIFIC GRAVITY >= 1.030 (1.005-1.035); URINE UROBILINOGEN 0.2 E.U./dl (0.2-1.0)
[2019-11-10 14:09] LABS: ALBUMIN 3.4 g/dL (3.4-5.0); DIRECT BILIRUBIN 0.1 mg/dL (<0.1-0.2); LIPASE 100 U/L (73-393); MAGNESIUM 1.5 mg/dL (1.8-2.4); SGOT 13 U/L (15-37); SGPT 16 U/L (30-65); TOTAL BILIRUBIN 0.5 mg/dL (0.2-1.0); TOTAL PROTEIN 7.3 g/dL (6.4-8.2); TROPONIN-I <0.06 ng/mL (<0.06)
[2019-11-10 14:09] LABS: AMP/METHAMP Negative (Negative); BARBITURATES Negative (Negative); BENZODIAZEPINES Negative (Negative); COCAINE Negative (Negative); METHADONE Negative (Negative); OPIATES Negative (Negative); PCP Negative (Negative)
[2019-11-10] MEDS ORDERED: XANAX 0.25 MG0.25 MG PO (17:28)
[2019-11-10 18:01] VITALS: BP 116/71
--- NOTE | 2019-11-11 09:56 | EKG ---
[facility] [place] [address] ELECTROCARDIOGRAM REPORT Name: MOHSEN PABON Room #: DEP [facility]#: [id number] Admission: 11/10/19 Attend Phys: Discharge: 11/10/19 Date of : [birth year] Report #: [id number] THIS REPORT FOR: cc: NISSA - Vannesa family physician/PCP NISSA - Vannesa family physician/PCP Andres Hogue MD [facility] THIS REPORT FOR: //name// [facility] ED Test Date: 2019-11-10 Test Time: 13:33:52 Pat Name: MOHSEN PABON Department: Room: Gender: Trauma Nurse: [facility] : 1990 Requested By: Valerie Gallagher Order Number: [id number] MD: Andres Hogue Measurements Intervals [place] Rate: 139 P: 124 KS: 109 QRS: 68 QRSD: 90 T: -56 QT: 327 QTc: 498 Interpretive Statements Sinus tachycardia Nonspecific T abnormalities, diffuse leads Prolonged QT interval Compared to ECG 10/29/2019 21:30:04 QT interval has lengthened Electronically Signed On 11-11-2019 9:56:02 CDT by Andres Hogue [email or web address] <ELECTRONICALLY SIGNED> By: Andres Hogue MD, [facility] 11/11/19 [id number] Andres Hogue MD, [facility] /EPI
== END 2019-11-10 18:04 | disposition home or self-care (01) ==
LOC: ER 13:28
PROVIDERS: Emergency Medicine
DX: R00.0 Tachycardia, unspecified (principal); R07.9 Chest pain, unspecified; R06.02 Shortness of breath; R51 Headache; J45.909 Unspecified asthma, uncomplicated; Z79.899 Other long term (current) drug therapy; Z88.6 Allergy status to analgesic agent